=== PATIENT | male | born 2000 | race Two or more races ===

== ENCOUNTER 2018-09-03 16:40 | Emergency (ER) | payer MEDICAID, OTHER ==
[~2018-09-03] VITALS: Ht 177.8 cm; Wt 102.1 kg
[2018-09-03 17:02] VITALS: BP 147/95
== END 2018-09-03 17:33 | disposition home or self-care (01) ==
LOC: ER 16:40
DX: J20.9 Acute bronchitis, unspecified (principal); H66.91 Otitis media, unspecified, right ear